=== PATIENT | male | born 1970 | race African-American/Black ===

== ENCOUNTER 2019-05-19 21:08 | Emergency (ER) | payer OTHER ==
[2019-05-19 21:32] VITALS: BP 141/91
[2019-05-19] MEDS ORDERED: Ciprofloxacin 0.3% OPTH.SOL* BTL BOTH EYES ONE (22:18)
--- NOTE | 2019-05-19 22:27 | UC ---
Eye Complaint HPI - HPI Summary HPI Summary: 1 WEEK OF WORSENING REDNESS AND IRRITATION IN BOTH HIS EYES. TODAY HAS HAD DRAINAGE. NO VISUAL DISTURBANCES, PHOTOPHOBIA, NAUSEA, HEADACHE. HAD SOME URI SYMPTOMS AND GI UPSET LAST WEEK THAT HAS SINCE RESOLVED. DOES NOT WEAR CONTACTS. - History of Current Complaint Chief Complaint: UCGeneralIllness Stated Complaint: EYE IRRITATION Time Seen by Provider: 05/19/19 22:10 Hx Obtained From: Patient Onset/Duration: Gradual Onset, Lasting Days, Still Present Timing: Constant Severity Initially: Moderate Severity Currently: Moderate Pain Intensity: 0 Pain Scale Used: 0-10 Numeric Location of Injury: Conjunctiva - BILATERAL Aggravating Factor(s): Nothing Alleviating Factor(s): Nothing Associated Signs And Symptoms: Positive: Drainage (Purulent). Negative: Photophobia, Vision Impairment Bilateral - Allergies/Home Medications Allergies/Adverse Reactions: Allergies Allergy/AdvReac Type Severity Reaction Status Date / Time No Known Allergies Allergy Verified 05/19/19 21:32 Home Medications: Home Medications NK [No Home Medications Reported] 05/19/19 [History Confirmed 05/19/19] PMH/Surg Hx/FS Hx/Imm Hx Previously Healthy: Yes - Surgical History Surgical History: Yes Surgery Procedure, Year, and Place: [facility] REPAIRED CHILD. LEFT RING FINGER OUTPT SURGERY. VASECTOMY - Family History Known Family History: Positive: Non-Contributory - Social History Alcohol Use: Daily Substance Use Type: Marijuana Smoking Status (MU): Former Smoker Review of Systems All Other Systems Reviewed And Are Negative: Yes Constitutional: Positive: Negative Eyes: Positive: Drainage, Eye Redness. Negative: Blurred Vision, Diplopia, Photophobia ENT: Positive: Negative Respiratory: Positive: Cough Cardiovascular: Positive: Negative Gastrointestinal: Positive: Negative Physical Exam Triage Information Reviewed: Yes Appearance: Well-Appearing, No Pain Distress, Well-Nourished Vital Signs: Initial Vital Signs Temp 98.2 F 05/19/19 21:24 Pulse 101 05/19/19 21:24 Resp 18 05/19/19 21:24 BP 141/91 05/19/19 21:24 Pulse Ox 99 05/19/19 21:24 Vital Signs Reviewed: Yes Eyes: Positive: Conjunctiva Inflamed - bilateral, Discharge - bilateral, Other: - PERRL, EOMI, NO FB IDENTIFIED ENT: Positive: Hearing grossly normal Neck: Positive: Supple Respiratory: Positive: No respiratory distress, No accessory muscle use Cardiovascular: Positive: Pulses Normal Abdomen Description: Positive: Soft Musculoskeletal: Positive: No Edema Neurological: Positive: Alert Psychological: Positive: Age Appropriate Behavior Skin: Negative: Rashes Eye Complaint Course/Dx - Course Course Of Treatment: PRESENTATION CONSISTENT WITH BILATERAL BACTERIAL CONJUNCTIVITIS. PHARMACIES ARE CLOSED WILL DISPENSE A BOTTLE OF CIPRO OPHTHALMIC SOLUTION. HE WILL INSTILL ONE DROP TO EACH EYE EVERY 4 HOURS WHILE AWAKE UNTIL SYMPTOMS ARE RESOLVED AND THEN FOR AN EXTRA DAY OR 2. FOLLOW-UP WITH OPHTHALMOLOGY IF SYMPTOMS NOT IMPROVING EXPECTED. - Differential Dx/Diagnosis Provider Diagnosis: Bilateral conjunctivitis Discharge ED - Sign-Out/Discharge Documenting (check all that apply): Patient Departure All imaging exams completed and their final reports reviewed: No Studies - Discharge Plan Condition: Stable Disposition: HOME Patient Education Materials: Conjunctivitis (ED) Referrals: Carolann Hou NP [Primary Care Provider] - If Needed Humberto Whitlock MD [Medical Doctor] - If Needed Additional Instructions: INSTILL ONE DROP IN EACH EYE EVERY 4 HOURS WHILE YOU ARE AWAKE. USE UNTIL YOUR SYMPTOMS ARE RESOLVED AND THEN FOR AN EXTRA 1 OR 2 DAYS. IF YOU ARE NOT NOTICING ANY IMPROVEMENT BY TUESDAY FOLLOW-UP WITH AN EYE DOCTOR. THIS CONDITION IS CONTAGIOUS SO BE SURE TO PRACTICE GOOD HYGIENE. - Billing Disposition and Condition Condition: STABLE Disposition: Home
== END 2019-05-19 22:30 | disposition home or self-care (01) ==
LOC: UCEAST 21:08
DX: H10.9 Unspecified conjunctivitis (principal); R05 Cough; Z87.891 Personal history of nicotine dependence
CPT/HCPCS: 99212; A9270-GY; G0463

== ENCOUNTER 2019-05-27 07:07 | Emergency (ER) | payer OTHER ==
[2019-05-27 07:18] VITALS: BP 138/63
--- NOTE | 2019-05-27 08:03 | ED ---
Throat Pain/Nasal Congestion - HPI Summary HPI Summary: 48 yo BM with B/L conjunctivitis presents for refill of cipro eye drops as it is still having yellow d/c in spite of using cipro eye drops x 1 week. Pt still c/o yellowish drainage every morning associated with dry eyes but denies pain, wears glasses but denies acute changes in vision. - History of Current Complaint Chief Complaint: UCEye Time Seen by Provider: 05/27/19 07:29 Hx Obtained From: Patient Onset/Duration: Lasting Days Severity: Mild Associated Signs And Symptoms: Positive: Negative - Allergies/Home Medications Allergies/Adverse Reactions: Allergies Allergy/AdvReac Type Severity Reaction Status Date / Time No Known Allergies Allergy Verified 05/27/19 07:17 PMH/Surg Hx/FS Hx/Imm Hx Previously Healthy: Yes Endocrine/Hematology History: Denies: Hx Diabetes, Hx Thyroid Disease Cardiovascular History: Denies: Hx Hypertension, Hx Pacemaker/ICD Respiratory History: Denies: Hx Asthma, Hx Chronic Obstructive Pulmonary Disease (COPD) GI History: Denies: Hx Ulcer History: Denies: Hx Renal Disease Sensory History: Denies: Hx Hearing Aid Psychiatric History: Denies: Hx Panic Disorder - Surgical History Surgery Procedure, Year, and Place: [facility] REPAIRED CHILD. LEFT RING FINGER OUTPT SURGERY. VASECTOMY Infectious Disease History: No Infectious Disease History: Denies: Hx Hepatitis, Hx Human Immunodeficiency Virus (HIV), Traveled Outside the [place] in Last 30 Days - Family History Known Family History: Positive: Non-Contributory - Social History Alcohol Use: Occasionally Substance Use Type: Reports: Marijuana Substance Use Comment - Amount & Last Used: infrequently Smoking Status (MU): Former Smoker Review of Systems Constitutional: Negative Positive: Drainage, Erythema ENT: Negative Cardiovascular: Negative Respiratory: Negative Gastrointestinal: Negative Genitourinary: Negative Musculoskeletal: Negative Skin: Negative Neurological: Negative Psychological: Normal All Other Systems Reviewed And Are Negative: Yes Physical Exam - Summary Physical Exam Summary: Vital Signs Reviewed: Yes Eye Exam: Normal Eyes: Positive: , mild B/L conjunctival erythema, no d/c ENT: Positive: Normal ENT inspection Neck: Positive: Supple Respiratory Exam: Normal Respiratory: Positive: Lungs clear, Normal breath sounds. Cardiovascular Exam: Normal Cardiovascular: Positive: RRR Abdomen: NT/ND Musculoskeletal Exam: Normal Neurological Exam: Normal Psychological Exam: Normal Skin Exam: Normal Triage Information Reviewed: Yes Vital Signs On Initial Exam: Initial Vitals Temp Pulse Resp BP Pulse Ox 36.9 C 80 16 138/63 97 05/27/19 07:13 05/27/19 07:13 05/27/19 07:13 05/27/19 07:13 05/27/19 07:13 Diagnostics - Vital Signs Vital Signs Temp Pulse Resp BP Pulse Ox 05/27/19 07:13 36.9 C 80 16 138/63 97 - Laboratory Lab Statement: Any lab studies that have been ordered have been reviewed, and results considered in the medical decision making process. EENT Course/Dx - Course Assessment/Plan: Refilled cipro eye drops but ADVISED TO FOLLOW UP WITH OPTHO FOR FURTHER EXAMINATION TO MAKE SURE TO R/O MORE SERIOUS CAUSES FOR "DRY EYES" VS ETIOLOGY OF PROLONGED DRAINAGE (SUBJECTIVE), PT VERBALIZED UNDERSTANDING - Diagnoses Provider Diagnoses: Conjunctivitis, Medication refill Discharge ED - Sign-Out/Discharge Documenting (check all that apply): Patient Departure All imaging exams completed and their final reports reviewed: No Studies - Discharge Plan Condition: Stable Disposition: HOME Prescriptions: Ciprofloxacin 0.3% OPTH.NAZ* [Cipro 0.3% Opth*] 2 drop BOTH EYES Q6H 7 Days #1 btl Patient Education Materials: Conjunctivitis (ED) Referrals: Carolann Hou NP [Primary Care Provider] - - Billing Disposition and Condition Condition: STABLE Disposition: Home
== END 2019-05-27 07:34 | disposition home or self-care (01) ==
LOC: UCEAST 07:07
DX: Z76.0 Encounter for issue of repeat prescription (principal); H10.9 Unspecified conjunctivitis; Z87.891 Personal history of nicotine dependence
CPT/HCPCS: 99212; G0463